=== PATIENT | female | born 1950 | race Caucasian/White ===

== ENCOUNTER 2017-05-14 11:07 | Outpatient (RCR) | payer MEDICARE ==
--- NOTE | 2017-05-16 08:04 | RADONC ---
RADIATION ONCOLOGY SIMULATION NOTE DATE: 05/14/2017 CHART NUMBER: [id number] Ms. Good was taken to the CT scan for CT simulation of her rectal field. CT was accomplished without difficulty or discomfort. Radiation treatment planning is underway and radiation treatments will begin subsequently. An immobilization device was created without difficulty or discomfort. It will be used throughout the course of treatment. I was physically present throughout the course of CT simulation.
--- NOTE | 2017-06-03 05:55 | RADONC ---
RADIATION ONCOLOGY PROGRESS NOTE DATE: 06/02/2017 CHART NUMBER: [id number] Ms. Good underwent her first fraction of radiation today to her rectum. It was tolerated without difficulty or discomfort. The patient's review of systems is unchanged. She continues to have her rectal difficulties. The remainder of physical exam is noncontributory. She denies nausea, vomiting, fevers, chills, night sweats, diplopia, headaches, anxiety or depression, anorexia, weight loss, visual disturbances, chest pain, neurological problems. The patient's physical exam shows no evidence of radiation change of the skin. The remainder of her physical exam remains unchanged as well. ASSESSMENT: Ms. Saldana has tolerated her first fraction without difficulty and radiation will continue as scheduled.
== END 2017-06-05 ==
LOC: M ONCR 11:07
PROVIDERS: ATTEND Radiology Radiation Oncology
DX: C20 Malignant neoplasm of rectum (principal)

== ENCOUNTER → 2017-05-14 | Outpatient (CLI) | payer MEDICARE | LOC: M RAD 10:16 | PROVIDERS: ATTEND Radiology Radiation Oncology | DX: C18.9 Malignant neoplasm of colon, unspecified (principal) ==

== ENCOUNTER → 2017-05-15 | Outpatient (REF) | payer MEDICARE ==
[2017-05-15 14:20] LABS: INR 1.04
== END ==
LOC: M LAB REF 13:57
PROVIDERS: ATTEND Internal Medicine Medical Oncology
DX: C20 Malignant neoplasm of rectum (principal)

== ENCOUNTER 2017-06-06 10:18 | Outpatient (RCR) | payer MEDICARE | END 2017-07-06 | LOC: M ONCR 10:18 | DX: Z51.89 Encounter for other specified aftercare (principal); C20 Malignant neoplasm of rectum | CPT/HCPCS: 77336 ==

== ENCOUNTER 2017-07-08 09:36 | Outpatient (RCR) | payer MEDICARE | END 2017-08-06 | LOC: M ONCR 09:36 | DX: C20 Malignant neoplasm of rectum (principal) | CPT/HCPCS: 77412 ==

== ENCOUNTER → 2017-08-27 | Outpatient (CLI) | payer MEDICARE | LOC: M ONCR 14:05 | DX: C20 Malignant neoplasm of rectum (principal) | CPT/HCPCS: G0463 ==

== ENCOUNTER → 2017-09-08 | Outpatient (REF) | payer MEDICARE ==
[2017-09-09 11:20] LABS: CARCINOEMBRYONIC ANTIGEN < 0.5 NG/ML (<2.5)
== END ==
LOC: M LAB REF 17:33
DX: C20 Malignant neoplasm of rectum (principal)
CPT/HCPCS: 82378